=== PATIENT | male | born 1995 | race Two or more races ===

== ENCOUNTER 2021-08-05 08:41 | Emergency (ER) | payer BC ==
[~2021-08-05] VITALS: Ht 180.3 cm; Wt 105.2 kg
--- NOTE | 2021-08-05 09:00 | NUR ---
THE PATIENT BIBS FOR C/O L SIDED CHEST PAIN, FELLING "DIZZY" SINCE WAKING UP THIS MORNING. IN ROOM AIR AND DENIES SOB. RESPIRATION REGULAR AND UNLABORED. ATTACHED TO THE MONITOR. WILL CONTINUE TO MONITOR THE PATIENT.
--- NOTE | 2021-08-05 09:40 | NUR ---
radiology supervisor at bedside
--- NOTE | 2021-08-05 10:16 | NUR ---
Patient discharged to home in stable condition. Written and verbal after care instructions given. Patient verbalizes understanding of instruction.
[2021-08-05 10:18] VITALS: BP 132/74
== END 2021-08-05 10:18 | disposition home or self-care (01) ==
LOC: ER 08:49
DX: R07.89 Other chest pain (principal); R04.0 Epistaxis
CPT/HCPCS: 71045-TC

== ENCOUNTER 2022-10-05 10:22 | Emergency (ER) | payer BC, OTHER ==
[~2022-10-05] VITALS: Ht 177.8 cm; Wt 106.6 kg
--- NOTE | 2022-10-05 10:45 | NUR ---
ACCIDENTALLY CRUSHED HIS LEFT INDEX FINGER WITH A SLEDGE HAMMER 2 DAYS AGO
[2022-10-05] MEDS ORDERED: SULF1TAB48 PO (11:36)
[2022-10-05] MEDS ORDERED: TDAP [DIPH/PERTUSSIS/TET] 0.5 ML VIAL IM ONE ×2 (11:40→12:00)
--- NOTE | 2022-10-05 11:45 | NUR ---
FINGER SPLINT PLACED BY EMT AT BEDSIDE
--- NOTE | 2022-10-05 11:56 | NUR ---
Patient discharged to home in stable condition. Written and verbal after care instructions given. Patient verbalizes understanding of instruction.
[2022-10-05 11:57] VITALS: BP 134/88
== END 2022-10-05 11:58 | disposition home or self-care (01) ==
LOC: ER 10:29
DX: S62.631A Displaced fracture of distal phalanx of left index finger, initial encounter for closed fracture (principal); F17.200 Nicotine dependence, unspecified, uncomplicated; Z79.899 Other long term (current) drug therapy; Z60.2 Problems related to living alone; X58.XXXA Exposure to other specified factors, initial encounter; Y93.89 Activity, other specified; Y92.89 Other specified places as the place of occurrence of the external cause; Y99.8 Other external cause status
CPT/HCPCS: 73140-TC; 90715